=== PATIENT | female | born 1940 | race Asian ===

== ENCOUNTER 2017-05-11 07:47 | Emergency (ER) | payer OTHER ==
[~2017-05-11] VITALS: Ht 157.5 cm; Wt 64.0 kg
[2017-05-11 09:01] LABS: HEMATOCRIT 34.1 % (34.6-47.8); HEMOGLOBIN 11.4 g/dL (11.7-16.4); WHITE BLOOD COUNT 7.6 x10^3/uL (3.4-10)
[2017-05-11 09:14] LABS: BLOOD UREA NITROGEN 14 mg/dL (7-18)
[2017-05-11 10:31] VITALS: BP 158/84
== END 2017-05-11 10:33 | disposition home or self-care (01) ==
LOC: ED 08:51
DX: I87.2 Venous insufficiency (chronic) (peripheral) (principal)
CPT/HCPCS: 36415; 71010; 80048; 82040; 83880; 85025; 93005; 93970